=== PATIENT | male | born 1945 | race Caucasian/White ===

== ENCOUNTER 2022-10-04 10:16 | Outpatient (CLI) | payer OTHER ==
[~2022-10-04 10:16] MED LIST: AVAPRO300 MG PO; NEURONTIN300 MG PO; PERCOCET 5/3251 TAB PO; POLY119PG PO; SYNTHROID100 MCG PO
== END 2022-10-04 10:31 | disposition home or self-care (01) ==
LOC: TOM 10:16
PROVIDERS: ATTEND Orthopaedic Surgery
DX: S83.200A Bucket-handle tear of unspecified meniscus, current injury, right knee, initial encounter (principal); M25.561 Pain in right knee; C25.1 Malignant neoplasm of body of pancreas; M25.562 Pain in left knee
CPT/HCPCS: 73718

== ENCOUNTER 2023-02-15 10:01 | Outpatient (CLI) | payer OTHER | END 2023-02-15 10:20 | disposition home or self-care (01) | LOC: RAD 10:01 | PROVIDERS: ATTEND Internal Medicine Cardiovascular Disease | DX: I50.22 Chronic systolic (congestive) heart failure (principal); E87.70 Fluid overload, unspecified ==

== ENCOUNTER 2023-04-24 10:36 | Outpatient (CLI) | payer OTHER | END 2023-04-24 11:03 | disposition home or self-care (01) | LOC: MRI 10:36 | PROVIDERS: ATTEND Psychiatry & Neurology Neurology | DX: G31.84 Mild cognitive impairment of uncertain or unknown etiology (principal) | CPT/HCPCS: 70551 ==

== ENCOUNTER 2023-05-02 11:12 | Outpatient (CLI) | payer OTHER | END 2023-05-02 11:15 | disposition home or self-care (01) | LOC: RAD 11:12 | DX: J44.9 Chronic obstructive pulmonary disease, unspecified (principal); R06.00 Dyspnea, unspecified; J90 Pleural effusion, not elsewhere classified ==

== ENCOUNTER 2023-06-15 12:53 | Emergency (ER) | payer OTHER ==
[~2023-06-15] VITALS: Ht 185.4 cm; Wt 68.9 kg
[~2023-06-15 12:53] MED LIST changes: -JANUVIA100 MG PO
[2023-06-15] MEDS ORDERED: JANUVIA100 MG PO (13:03)
[2023-06-15 15:38] LABS: HEMATOCRIT 46.4 % (39.0-48.0); HEMOGLOBIN 15.1 g/dL (13-16.00); MEAN CELL VOLUME 94.9 fL (80.0-100.00); MEAN CORPUSCULAR HEMOGLOBIN 30.9 pg (27.00-32.0); MEAN CORPUSCULAR HGB CONC 32.6 g/dl (32.0-36.0); PLATELET COUNT 357 K/uL (150-450); RED BLOOD COUNT 4.89 M/uL (4.00-6.00)
[2023-06-15 15:39] LABS: RED CELL DISTRIBUTION WIDTH 18.2 % (11.5-14.5)
[2023-06-15 16:00] LABS: CALCIUM 9.6 mg/dL (8.5-10.1); CREATININE SERUM 1.4 mg/dL (0.70-1.30); GFR 49.01; POTASSIUM 4.83 mEq/L (3.5-5.1)
== END 2023-06-16 09:47 | disposition designated cancer center or children's hospital (05) ==
LOC: ER 12:53
PROVIDERS: General Practice
DX: N45.1 Epididymitis (principal)
CPT/HCPCS: 36415; 74176; 96365; 96372; 99285; J3490

== ENCOUNTER → 2023-06-15 | Outpatient (CLI) | payer OTHER ==
[~2023-06-15] MED LIST changes: +JANUVIA100 MG PO
== END | disposition home or self-care (01) ==
LOC: SONOGRAMA 10:27
PROVIDERS: ATTEND Surgery
DX: D40.12 Neoplasm of uncertain behavior of left testis (principal)

== ENCOUNTER 2023-08-09 09:38 | Emergency (ER) | payer OTHER ==
[~2023-08-09] VITALS: Ht 185.4 cm; Wt 70.3 kg
[~2023-08-09 09:38] MED LIST changes: +JANUVIA100 MG PO
[2023-08-09] MEDS ORDERED: FARXIGA5 MG PO (10:35)
[2023-08-09 13:47] LABS: HEMATOCRIT 48.2 % (39.0-48.0); HEMOGLOBIN 16.2 g/dL (13-16.00); MEAN CELL VOLUME 98.5 fL (80.0-100.00); MEAN CORPUSCULAR HEMOGLOBIN 33.1 pg (27.00-32.0); MEAN CORPUSCULAR HGB CONC 33.6 g/dl (32.0-36.0); PLATELET COUNT 266 K/uL (150-450); RED BLOOD COUNT 4.89 M/uL (4.00-6.00); RED CELL DISTRIBUTION WIDTH 20.9 % (11.5-14.5)
[2023-08-09 14:14] LABS: ALBUMIN 3.1 gm/dL (3.4-5.0); BILIRUBIN TOTAL 2.13 mg/dL (0.3-1.2); CALCIUM 9.2 mg/dL (8.5-10.1); CREATININE SERUM 1.36 mg/dL (0.70-1.30); GFR 50.68; GLOBULINA 4.8 G/DL (2.4-3.5); POTASSIUM 4.38 mEq/L (3.5-5.1); TOTAL PROTEIN 7.9 gm/dL (6.4-8.2)
== END 2023-08-09 16:50 | disposition home or self-care (01) ==
LOC: ER 09:38
PROVIDERS: General Practice
DX: M51.26 Other intervertebral disc displacement, lumbar region (principal); I50.9 Heart failure, unspecified; I12.9 Hypertensive chronic kidney disease with stage 1 through stage 4 chronic kidney disease, or unspecified chronic kidney disease; N18.9 Chronic kidney disease, unspecified; J43.8 Other emphysema; E03.9 Hypothyroidism, unspecified; K80.20 Calculus of gallbladder without cholecystitis without obstruction; K57.30 Diverticulosis of large intestine without perforation or abscess without bleeding; I71.40 Abdominal aortic aneurysm, without rupture, unspecified
CPT/HCPCS: 36415; 72131; 96365; 99284; J2405; J3490

== ENCOUNTER 2023-09-14 10:31 | Outpatient (CLI) | payer OTHER ==
[~2023-09-14 10:31] MED LIST changes: +FARXIGA5 MG PO
== END 2023-09-14 10:37 | disposition home or self-care (01) ==
LOC: TOM 10:31
PROVIDERS: ATTEND General Practice
DX: N18.9 Chronic kidney disease, unspecified (principal); Z85.07 Personal history of malignant neoplasm of pancreas
CPT/HCPCS: 74177; Q9965

== ENCOUNTER 2023-10-31 10:01 | Outpatient (CLI) | payer OTHER | END 2023-10-31 10:05 | disposition home or self-care (01) | LOC: MRI 10:01 | PROVIDERS: ATTEND General Practice | DX: M54.59 Other low back pain (principal) | CPT/HCPCS: 72141; 72148 ==

== ENCOUNTER 2023-12-28 10:10 | Outpatient (CLI) | payer OTHER | END 2023-12-28 10:22 | disposition home or self-care (01) | LOC: TOM 10:10 | PROVIDERS: ATTEND General Practice | DX: I71.20 Thoracic aortic aneurysm, without rupture, unspecified (principal); N62 Hypertrophy of breast ==